=== PATIENT | female | born 2000 | race Caucasian/White ===

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

== ENCOUNTER 2021-10-16 21:05 | Emergency (ER) | payer OTHER ==
[~2021-10-16] VITALS: Ht 167.6 cm; Wt 55.1 kg
[2021-10-16] MEDS ORDERED: ALDACTONE50 MG PO (21:23)
--- NOTE | 2021-10-17 14:09 | EKG ---
[facility] [address] [facility] [place], [place] [address] Signed Normal sinus rhythm Normal ECG When compared with ECG of 05-OCT-2016 16:47, PREVIOUS ECG IS PRESENT Confirmed by ZAID US MD ([id number]) on 10/17/2021 2:09:21 PM Electronically Signed By: ZAID US MD 10/17/21 1409 PATIENT NAME: VIKKI ACUNA Electrocardiogram DATE OF : [birth year] PHYSICIAN: ZAID US MD REPORT #: [id number] REPORT IS CONFIDENTIAL AND NOT TO BE RELEASED WITHOUT AUTHORIZATION
== END 2021-10-17 00:06 | disposition home or self-care (01) ==
LOC: ED 21:05
DX: J02.9 Acute pharyngitis, unspecified (principal); R00.2 Palpitations; R63.4 Abnormal weight loss; Z79.899 Other long term (current) drug therapy; Z91.013 Allergy to seafood; Z20.822 Contact with and (suspected) exposure to COVID-19
CPT/HCPCS: 36415; 80053; 81001; 84443; 84703; 85025; 86308; 87502; 87880; 93005; 93010; 99285-25; C9803; U0003

== ENCOUNTER 2022-07-15 19:28 | Emergency (ER) | payer OTHER ==
[~2022-07-15] VITALS: Ht 170.2 cm; Wt 52.4 kg
[~2022-07-15 19:28] MED LIST changes: +ALDACTONE50 MG PO
[2022-07-15] MEDS ORDERED: ESCITALOPRAM OX10 MG PO (19:46)
== END 2022-07-15 20:58 | disposition home or self-care (01) ==
LOC: ED 19:28
DX: S61.212A Laceration without foreign body of right middle finger without damage to nail, initial encounter (principal); F41.9 Anxiety disorder, unspecified; W22.8XXA Striking against or struck by other objects, initial encounter; Z91.013 Allergy to seafood; Z79.899 Other long term (current) drug therapy
CPT/HCPCS: 12001; 73140; 99283-25